=== PATIENT | female | born 1945 | race Caucasian/White ===

== ENCOUNTER → 2017-02-07 | Outpatient (CLI) | payer MEDICARE, OTHER ==
[~2017-02-07] MED LIST: ALPR-475 PO; AZIT-14 PO; CALC-440 PO; CEFD300C2 PO; CELE200C; CETI10TA32 PO; CHOL20002 PO; FENT1PAT77 EXT; FURO-93 PO; LISI20TA PO; MAGN250T PO; METO25TA2 PO; METO25TA91; MULT1CAP19; OXYC15TA60; OXYC15TA60 PO; OXYC30TA66; OXYC40TA27 PO; POTA20TA6 PO; SERT50TA PO; SPIR25TA PO; SYNTHROID PO; UBID1CAP18 PO; WARF4TAB PO
[2017-02-07 12:39] LABS: BLOOD UREA NITROGEN 32 mg/dL (7-18)
== END | disposition home or self-care (01) ==
LOC: LAB 12:11
PROVIDERS: ATTEND Physician Assistant Medical
DX: I50.9 Heart failure, unspecified (principal)
CPT/HCPCS: 36415; 80048; 83880

== ENCOUNTER → 2017-08-04 | Outpatient (CLI) | payer MEDICARE, OTHER ==
[~2017-08-04] MED LIST changes: -AZIT-14 PO; +AZIT250T89 PO; -CEFD300C2 PO; +CEFD300C37 PO; +FENT1PAT76 TP; +LEVO100T PO; -MAGN250T PO; +MAGN250T2 PO; +METO5TAB5 PO
[2017-08-04 12:43] LABS: HEMATOCRIT 30.4 % (34.6-47.8); HEMOGLOBIN 9.9 g/dL (11.7-16.4)
[2017-08-04 12:57] LABS: BLOOD UREA NITROGEN 42 mg/dL (7-18)
[2017-08-04 13:02] LABS: ASPARTATE AMINO TRANSFERASE 19 U/L (15-37)
== END | disposition home or self-care (01) ==
LOC: STAR 10:52
PROVIDERS: ATTEND Neurological Surgery
DX: Z01.818 Encounter for other preprocedural examination (principal); I48.91 Unspecified atrial fibrillation; M47.812 Spondylosis without myelopathy or radiculopathy, cervical region; I10 Essential (primary) hypertension; R93.1 Abnormal findings on diagnostic imaging of heart and coronary circulation; R94.31 Abnormal electrocardiogram [ECG] [EKG]; Z85.3 Personal history of malignant neoplasm of breast
CPT/HCPCS: 36415; 71020; 80053; 81003; 85025; 85610; 85730; 93005

== ENCOUNTER → 2017-08-21 | Outpatient (CLI) | payer MEDICARE, OTHER | END | disposition home or self-care (01) | LOC: CFH 12:19 | PROVIDERS: ATTEND Nurse Practitioner Family | DX: I11.0 Hypertensive heart disease with heart failure (principal); I50.9 Heart failure, unspecified; I27.21 Secondary pulmonary arterial hypertension; I48.2 Chronic atrial fibrillation; I36.1 Nonrheumatic tricuspid (valve) insufficiency; I87.2 Venous insufficiency (chronic) (peripheral); R60.0 Localized edema; Z98.890 Other specified postprocedural states; Z96.611 Presence of right artificial shoulder joint; Z96.612 Presence of left artificial shoulder joint | CPT/HCPCS: 71020 ==

== ENCOUNTER → 2017-09-26 | Outpatient (CLI) | payer MEDICARE, OTHER | END | disposition home or self-care (01) | LOC: LAB 15:19 | PROVIDERS: ATTEND Internal Medicine Cardiovascular Disease | DX: I34.0 Nonrheumatic mitral (valve) insufficiency (principal); I48.2 Chronic atrial fibrillation; Z79.01 Long term (current) use of anticoagulants | CPT/HCPCS: 36415; 85610 ==

== ENCOUNTER 2017-10-08 09:44 | Day surgery (SDC) | payer MEDICARE, OTHER ==
[2017-10-07 11:06] VITALS: BP 108/55
[2017-10-07 11:48] LABS: HEMATOCRIT 30.6 % (34.6-47.8); HEMOGLOBIN 10.2 g/dL (11.7-16.4); WHITE BLOOD COUNT 4.2 x10^3/uL (3.4-10)
[2017-10-07 11:55] LABS: BLOOD UREA NITROGEN 19 mg/dL (7-18)
[~2017-10-08] VITALS: Ht 175.3 cm; Wt 100.5 kg
[~2017-10-08 09:44] MED LIST changes: +FOLIC ACID PO; +GABA100C PO; +MAGNESIUM PO; +POTA20TA89 PO; +UBID200C8 PO
[2017-10-08] MEDS ORDERED: DIPHENHYDRAMINE 50 MG/ML, 1ML ONE (10:25)
[2017-10-08] MEDS ORDERED: DIPHENHYDRAMINE 50 MG/ML, 1ML IVPush ONE (10:30)
[2017-10-08] MEDS ORDERED: FENTANYL PF 100 MCG/2ML ONE (10:59)
[2017-10-08] MEDS ORDERED: LIDOCAINE 2%, 20ML ONE (11:00)
[2017-10-08] MEDS ORDERED: MIDAZOLAM 1 MG/ML, 5ML ONE (11:00)
[2017-10-08] MEDS ORDERED: SPIR25TA PO (12:11)
[2017-10-08] MEDS ORDERED: POTA10TA31 PO (14:59)
== END 2017-10-08 15:15 | disposition home or self-care (01) ==
LOC: CACL 09:44
PROVIDERS: ATTEND Internal Medicine Cardiovascular Disease
DX: I27.0 Primary pulmonary hypertension (principal); I48.2 Chronic atrial fibrillation; Z79.01 Long term (current) use of anticoagulants
CPT/HCPCS: 36415; 80048; 83880; 85025; 85610; 93451; 99156; 99157; C1769; C1894; J1200; J2250; J3010; J3490

== ENCOUNTER → 2017-12-10 | Outpatient (CLI) | payer MEDICARE, OTHER ==
[~2017-12-10] MED LIST changes: +POTA10TA31 PO; +UBID200C35 PO; -UBID200C8 PO
[2017-12-10 13:20] LABS: MICROSCOPIC NOT IND
[2017-12-10 13:22] LABS: ALBUMIN 3.4 g/dL (3.4-5.0); ANION GAP 8 mmol/L (5-15); CALCIUM 8.9 mg/dL (8.5-10.1); CHLORIDE 103 mmol/L (98-107)
[2017-12-10 13:24] LABS: INTERNATIONAL NORMALIZED RATIO 1.51 (0.93-1.1); PROTHROMBIN TIME 15.4 Seconds (9.6-11.5)
[2017-12-10 13:26] LABS: ALANINE AMINOTRANSFERASE 20 U/L (12-78); ALKALINE PHOSPHATASE 149 U/L (45-117); BILIRUBIN,TOTAL 0.9 mg/dL (0.2-1.0); TOTAL PROTEIN 7.6 g/dL (6.4-8.2)
[2017-12-10 13:34] LABS: BASOPHILS # (AUTO) 0.06 x10^3/uL (0-0.1); BASOPHILS % (AUTO) 2 % (0-1); EOSINOPHILS # (AUTO) 0.07 x10^3/uL (0-0.4); EOSINOPHILS % (AUTO) 2 % (1-7); LYMPHOCYTES # (AUTO) 0.76 x10^3/uL (1-3.4); LYMPHOCYTES % (AUTO) 21 % (22-44); MD NO; MEAN CORPUSCULAR HEMOGLOBIN 28.8 pg (27.0-34.8); MEAN CORPUSCULAR HGB CONC 33.8 g/dL (32.4-35.8); MEAN CORPUSCULAR VOLUME 85.1 fL (80-100); MEAN PLATELET VOLUME 8.1 fL (7.4-10.4); MONOCYTES # (AUTO) 0.35 x10^3/uL (0.2-0.8); MONOCYTES % (AUTO) 10 % (2-9); NEUTROPHILS # (AUTO) 2.38 x10^3/uL (1.8-6.8); NEUTROPHILS % (AUTO) 66 % (42-75); PLATELET COUNT 218 x10^3/uL (130-400); RED BLOOD COUNT 3.92 x10^6/uL (3.82-5.3); RED CELL DISTRIBUTION WIDTH 17.1 % (9.6-15.2)
[2017-12-10 17:13] LABS: CULTURE INDICATED? NO
== END | disposition home or self-care (01) ==
LOC: STAR 11:27
PROVIDERS: ATTEND Neurological Surgery
DX: Z01.818 Encounter for other preprocedural examination (principal); I51.7 Cardiomegaly; M47.812 Spondylosis without myelopathy or radiculopathy, cervical region; Z98.890 Other specified postprocedural states
CPT/HCPCS: 36415; 71046; 80053; 81003; 85025; 85610; 85730

== ENCOUNTER 2018-05-05 11:44 | Emergency (ER) | payer MEDICARE, OTHER ==
[~2018-05-05] VITALS: Ht 175.3 cm; Wt 88.0 kg
[~2018-05-05 11:44] MED LIST changes: +BACL-19 PO; +CARV6.2512 PO; +WARF1TAB PO
[2018-05-05] MEDS ORDERED: SODIUM CHLORIDE FLUSH 10ML SYR IVF ONE (12:00)
[2018-05-05 12:43] LABS: BASOPHILS # (AUTO) 0.02 x10^3/uL (0-0.1); BASOPHILS % (AUTO) 0 % (0-1); EOSINOPHILS # (AUTO) 0.11 x10^3/uL (0-0.4); EOSINOPHILS % (AUTO) 2 % (1-7); LYMPHOCYTES % (AUTO) 11 % (22-44); MD NO; MEAN CORPUSCULAR HEMOGLOBIN 28.7 pg (27.0-34.8); MEAN CORPUSCULAR HGB CONC 32.4 g/dL (32.4-35.8); MEAN CORPUSCULAR VOLUME 88.7 fL (80-100); MEAN PLATELET VOLUME 8.1 fL (7.4-10.4); MONOCYTES # (AUTO) 0.44 x10^3/uL (0.2-0.8); MONOCYTES % (AUTO) 9 % (2-9); NEUTROPHILS # (AUTO) 3.63 x10^3/uL (1.8-6.8); NEUTROPHILS % (AUTO) 77 % (42-75); PLATELET COUNT 212 x10^3/uL (130-400); RED BLOOD COUNT 3.82 x10^6/uL (3.82-5.3); RED CELL DISTRIBUTION WIDTH 15.8 % (9.6-15.2)
[2018-05-05 12:54] LABS: INTERNATIONAL NORMALIZED RATIO 1.79 (0.93-1.1); PROTHROMBIN TIME 18.4 Seconds (9.6-11.5)
[2018-05-05 12:56] LABS: ALBUMIN 2.8 g/dL (3.4-5.0); ANION GAP 6 mmol/L (5-15); CHLORIDE 96 mmol/L (98-107)
[2018-05-05 13:01] LABS: ALANINE AMINOTRANSFERASE 21 U/L (12-78); ALKALINE PHOSPHATASE 132 U/L (45-117); BILIRUBIN,TOTAL 1.2 mg/dL (0.2-1.0); CREATININE 1.39 mg/dL (0.55-1.02); TOTAL PROTEIN 6.6 g/dL (6.4-8.2); TROPONIN I < 0.015 ng/mL (0.000-0.045)
[2018-05-05 14:04] LABS: MICROSCOPIC NOT IND
[2018-05-05 14:39] LABS: CULTURE INDICATED? NO
[2018-05-05 14:55] VITALS: BP 115/96
== END 2018-05-05 15:57 | disposition home or self-care (01) ==
LOC: ED 13:30
DX: I48.91 Unspecified atrial fibrillation (principal); N28.9 Disorder of kidney and ureter, unspecified; M54.12 Radiculopathy, cervical region; M54.32 Sciatica, left side; R89.2 Abnormal level of other drugs, medicaments and biological substances in specimens from other organs, systems and tissues; I10 Essential (primary) hypertension; Z79.01 Long term (current) use of anticoagulants
CPT/HCPCS: 36415; 70450; 70551; 71045; 80053; 81003; 84484; 85025; 85610; 85730; 93005; 99285